=== PATIENT | female | born 1985 | race African-American/Black ===

== ENCOUNTER 2017-01-15 08:11 | Emergency (ER) | payer BC ==
[2017-01-15 08:18] VITALS: BP 150/97
--- NOTE | 2017-01-15 09:26 | ER Document Report ---
ED General - General Chief Complaint: Cold Symptoms Stated Complaint: COUGH Time Seen by Provider: 01/15/17 08:26 Mode of Arrival: Ambulatory Information source: Patient Notes: 31-year-old female presents with complaints of cough congestion sore throat body aches of approximately 3-4 day duration. Patient denies any fevers or chills denies any drainage from the nose TRAVEL OUTSIDE OF THE [place] IN LAST 30 DAYS: No - HPI Onset: Last week Onset/Duration: Persistent Quality of pain: Achy Severity: Mild Pain Level: 1 Associated symptoms: Body/muscle aches, Nonproductive cough Exacerbated by: Denies Relieved by: Denies Similar symptoms previously: No Recently seen / treated by doctor: No - Related Data Allergies/Adverse Reactions: No Known Allergies Allergy (Verified 01/15/17 08:27) Past Medical History - Social History Smoking Status: Current Every Day Smoker Cigarette use (# per day): Yes Chew tobacco use (# tins/day): No Smoking Education Provided: No Frequency of alcohol use: Social Drug Abuse: None Family History: Reviewed & Not Pertinent Patient has suicidal ideation: No Patient has homicidal ideation: No - Past Medical History Cardiac Medical History: Reports: Hx Hypertension Renal/ Medical History: Denies: Hx Peritoneal Dialysis Surgical Hx: Negative - Immunizations Hx Diphtheria, Pertussis, Tetanus Vaccination: Yes Review of Systems - Review of Systems Notes: REVIEW OF SYSTEMS: CONSTITUTIONAL : Denies fever, chills, or sweats. Denies recent illness. EENT: Admits to sore throat CARDIOVASCULAR: Denies chest pain. Denies palpitations or racing or irregular heart beat. Denies ankle edema. RESPIRATORY: Denies cough, cold, or chest congestion. Denies shortness of breath, difficulty breathing, or wheezing. GASTROINTESTINAL: Denies abdominal pain or distention. Denies nausea, vomiting , or diarrhea. Denies blood in vomitus, stools, or per rectum. Denies black, tarry stools. Denies constipation. GENITOURINARY: Denies difficulty urinating, painful urination, burning, frequency, blood in urine, or discharge. FEMALE GENITOURINARY: Denies vaginal bleeding, heavy or abnormal periods, irregular periods. Denies vaginal discharge or odor. MUSCULOSKELETAL: Admits to body aches SKIN: Denies rash, lesions or sores. HEMATOLOGIC : Denies easy bruising or bleeding. LYMPHATIC: Denies swollen, enlarged glands. NEUROLOGICAL: Denies confusion or altered mental status. Denies passing out or loss of consciousness. Denies dizziness or lightheadedness. Denies headache. Denies weakness or paralysis or loss of use of either side. Denies problems with gait or speech. Denies sensory loss, numbness, or tingling. Denies seizures. PSYCHIATRIC: Denies anxiety or stress. Denies depression, suicidal ideation, or homicidal ideation. ALL OTHER SYSTEMS REVIEWED AND NEGATIVE. PHYSICAL EXAMINATION: GENERAL: Well-appearing, well-nourished and in no acute distress. HEAD: Atraumatic, normocephalic. EYES: Pupils equal round and reactive to light, extraocular movements intact, conjunctiva are normal. ENT: Nares patent, oropharynx clear without exudates. Moist mucous membranes. NECK: Normal range of motion, supple without lymphadenopathy LUNGS: Breath sounds clear to auscultation bilaterally and equal. No wheezes rales or rhonchi. HEART: Regular rate and rhythm without murmurs ABDOMEN: Soft, nontender, nondistended abdomen. No guarding, no rebound. No masses appreciated. Female : deferred Musculoskeletal: Normal range of motion, no pitting or edema. No cyanosis. NEUROLOGICAL: Cranial nerves grossly intact. Normal speech, normal gait. Normal sensory, motor exams PSYCH: Normal mood, normal affect. SKIN: Warm, Dry, normal turgor, no rashes or lesions noted. Dictation was performed using [employer] voice recognition software Physical Exam - Vital signs Vitals: Temp Pulse Resp BP Pulse Ox 98.5 F 94 16 150/97 H 96 01/15/17 08:14 01/15/17 08:14 01/15/17 08:14 01/15/17 08:14 01/15/17 08:14 Course - Re-evaluation Re-evalutation: 01/15/17 11:48 Physical examination noted no significant abnormality strep flu were negative. Patient overall looks quite well. I will discharge her home as a viral syndrome with close return precautions After performing a Medical Screening Examination, I estimate there is LOW risk for ACUTE CORONARY SYNDROME, RESPIRATORY FAILURE, SEPSIS OR MENINGITIS, thus I consider the discharge disposition reasonable. I have reevaluated this patient multiple times and no significant life threatening changes are noted. The patient and I have discussed the diagnosis and risks, and we agree with discharging home with close follow-up. We also discussed returning to the Emergency Department immediately if new or worsening symptoms occur. We have discussed the symptoms which are most concerning (e.g., changing or worsening pain, trouble swallowing or breathing, neck stiffness, fever) that necessitate immediate return. - Vital Signs Vital signs: Temp Pulse Resp BP Pulse Ox 98.5 F 94 16 150/97 H 96 01/15/17 08:14 01/15/17 08:14 01/15/17 08:14 01/15/17 08:14 01/15/17 08:14 Discharge - Discharge Clinical Impression: Viral URI with cough Condition: Stable Disposition: HOME, SELF-CARE Instructions: Viral Syndrome ([facility]) Prescriptions: Hydrocodone Bit/Homatropine [Hycodan 5-1.5 mg Tablet] 1 tab PO Q4HP PRN #24 tablet PRN Reason: Referrals: JACOB NUNN PA-C [Primary Care Provider] - Follow up tomorrow
== END 2017-01-15 09:45 | disposition home or self-care (01) ==
LOC: ER 08:11
DX: J06.9 Acute upper respiratory infection, unspecified (principal); R05 Cough; R09.81 Nasal congestion; J02.9 Acute pharyngitis, unspecified; M79.1 Myalgia; F17.210 Nicotine dependence, cigarettes, uncomplicated
CPT/HCPCS: 87070; 87077; 87804; 87880; 99283

== ENCOUNTER 2017-01-25 10:43 | Emergency (ER) | payer BC ==
[~2017-01-25 10:43] MED LIST: DEXAMETHASONE SOD PHOSPHATE INJ 4 MG/1 ML VIAL ONE; GLYCOPYRROLATE INJ 0.4 MG/2 ML VIAL ONE; KETOROLAC TROMETHAMINE 60 MG/2 ML SDV ONE; LIDOCAINE 2% INJ-PF (20 MG/ML) 10 ML AMPUL ONE; METOCLOPRAMIDE HCL INJ/PF 10 MG/2 ML SDV ONE; ONDANSETRON HCL INJ/PF 4 MG/2 ML SDV ONE
[2017-01-25] MEDS ORDERED: NORMAL SALINE 1000 ML 1,000 ML IV PRN (11:09)
--- NOTE | 2017-01-25 11:15 | ER Document Report ---
ED Breast Problem - General Chief Complaint: Breast Problem Stated Complaint: BREAST PAIN Time Seen by Provider: 01/25/17 10:52 Mode of Arrival: Ambulatory Information source: Patient Notes: 31-year-old female presents to ED for complaint of left breast pain 2 weeks. She has history of hydranitis it started in her left axilla and now is across to her left breast and she states she has been in other areas also. Today she is here with severe pain to the left breast with 2 large areas on the left breast that are firm and very painful. TRAVEL OUTSIDE OF THE [place] IN LAST 30 DAYS: No - HPI Patient complains to provider of: Drainage, Lump, Redness, Swelling, Tenderness Onset: Other - 2 weeks Onset/Duration: Persistent, Worse Quality of pain: Achy, Pressure, Sharp Severity: Severe Pain Level: 5 Drainage amount: Scant Discharge description: Serous Associated Symptoms: Other - Pain Similar symptoms previously: Yes Recently seen / treated by doctor: No - Related Data Allergies/Adverse Reactions: No Known Allergies Allergy (Verified 01/25/17 10:47) Home Medications: Current Home Medications No Home Medications 01/25/17 [History] Past Medical History - General Information source: Patient - Social History Smoking Status: Current Every Day Smoker Cigarette use (# per day): Yes - One half pack per day Chew tobacco use (# tins/day): No Frequency of alcohol use: Occasional Drug Abuse: None Lives with: Family Family History: Arthritis, DM, Hyperlipidemia, Hypertension, Malignancy. denies : CAD, COPD, CVA, Thyroid Disfunction Patient has suicidal ideation: No Patient has homicidal ideation: No - Past Medical History Cardiac Medical History: Reports: Hx Hypertension Pulmonary Medical History: Reports: None EENT Medical History: Reports: None Neurological Medical History: Reports: None Endocrine Medical History: Reports: None Renal/ Medical History: Reports: None. Denies: Hx Peritoneal Dialysis Malignancy Medical History: Reports: None GI Medical History: Reports: None Musculoskeltal Medical History: Reports None Skin Medical History: Reports Other - Hydranitis Psychiatric Medical History: Reports: Hx Depression Traumatic Medical History: Reports: None Infectious Medical History: Reports: None Surgical Hx: Negative Past Surgical History: Reports: None - Immunizations Hx Diphtheria, Pertussis, Tetanus Vaccination: Yes Review of Systems - Review of Systems Constitutional: No symptoms reported EENT: No symptoms reported Cardiovascular: No symptoms reported Respiratory: No symptoms reported Gastrointestinal: No symptoms reported Genitourinary: No symptoms reported Female Genitourinary: No symptoms reported Musculoskeletal: No symptoms reported Skin: Lumps - Very painful to left breast and left chest wall Hematologic/Lymphatic: No symptoms reported Neurological/Psychological: No symptoms reported -: Yes All other systems reviewed and negative Physical Exam - Vital signs Vitals: Temp Pulse Resp BP Pulse Ox 99.0 F 100 18 149/103 H 94 01/25/17 10:48 01/25/17 10:48 01/25/17 10:48 01/25/17 10:48 01/25/17 10:48 Interpretation: Normal - General General appearance: Appears well, Alert - HEENT Head: Normocephalic, Atraumatic Eyes: Normal Pupils: PERRL - Respiratory Respiratory status: No respiratory distress Chest status: Nontender Breath sounds: Normal Chest palpation: Normal - Cardiovascular Rhythm: Regular Heart sounds: Normal auscultation Murmur: No - Abdominal Inspection: Normal Distension: No distension Bowel sounds: Normal Tenderness: Nontender Organomegaly: No organomegaly - Back Back: Normal, Nontender - Extremities General upper extremity: Normal inspection, Nontender, Normal color, Normal ROM , Normal temperature General lower extremity: Normal inspection, Nontender, Normal color, Normal ROM , Normal temperature, Normal weight bearing. No: Carmen's sign - Neurological Neuro grossly intact: Yes Cognition: Normal Orientation: AAOx4 Sushma Coma Scale Eye Opening: Spontaneous [place] Coma Scale Verbal: Oriented Sushma Coma Scale Motor: Obeys Commands Sushma Coma Scale Total: 15 Speech: Normal Motor strength normal: LUE, RUE, LLE, RLE Sensory: Normal - Psychological Associated symptoms: Normal affect, Normal mood - Skin Skin Temperature: Warm Skin Moisture: Dry Skin Color: Normal Skin irregularity: Abscess Location of irregularity: Other - Left breast and chest wall Irregularity with: Swelling, Tenderness, Warmth, Thickening, Inflammation, Weeping Course - Re-evaluation Re-evalutation: 01/25/17 12:[address] Phillips and then Dr. Reynoso patient will be taken to surgery to I&D the abscess to her breast and chest wall. CBC chemistry tests blood cultures clindamycin and urine ordered. Dr. Reynoso has been and seen the patient and will be taken her to surgery shortly. - Vital Signs Vital signs: Temp Pulse Resp BP Pulse Ox 99.0 F 100 18 149/103 H 94 01/25/17 10:48 01/25/17 10:48 01/25/17 10:48 01/25/17 10:48 01/25/17 10:48 - Laboratory Result Diagrams: 01/25/17 11:40 01/25/17 11:40 Discharge - Discharge Clinical Impression: Left breast abscess Condition: Good Disposition: ADMITTED INPATIENT Admitting Provider: Surgicalist - [place] [facility] Admitted: Surgical Floor
[2017-01-25] MEDS ORDERED: CLINDAMYCIN 600 MG/D5W RTU 600 MG/50 ML RTUPB IV ONE ×2 (11:40→14:45)
[2017-01-25 11:57] LABS: ABSOLUTE EOSINOPHILS # (AUTO) 0.1 10^3/uL (0.0-0.6); ABSOLUTE LYMPHOCYTES (AUTO) 1.3 10^3/uL (0.5-4.7); ABSOLUTE MONOCYTES (AUTO) 0.5 10^3/uL (0.1-1.4); ABSOLUTE NEUT (AUTO) 8.2 10^3/uL (1.7-8.2); BASOPHILS % (AUTO) 0.3 % (0-2); HEMATOCRIT 30.4 % (36.0-47.0); HEMOGLOBIN 10.4 g/dL (12.0-15.5); HGB HCT DIFFERENCE 0.8; LYMPHOCYTES % (AUTO) 12.4 % (13-45); MEAN CORPUSCULAR HEMOGLOBIN 28.8 pg (27.0-33.4); MEAN CORPUSCULAR HGB CONC 34.3 g/dL (32.0-36.0); MEAN CORPUSCULAR VOLUME 84 fl (80-97); MONOCYTES % (AUTO) 5.1 % (3-13); RED BLOOD COUNT 3.61 10^6/uL (3.72-5.28); RED CELL DISTRIBUTION WIDTH 13.9 % (11.5-14.0); SEGMENTED NEUTROPHILS % (AUTO) 81.2 % (42-78); WHITE BLOOD COUNT 10.1 10^3/uL (4.0-10.5)
[2017-01-25 12:17] LABS: ALANINE AMINOTRANSFERASE 20 U/L (9-52); ALBUMIN 3.2 g/dL (3.5-5.0); ALKALINE PHOSPHATASE 82 U/L (38-126); ANION GAP 6 (5-19); ASPARTATE AMINO TRANSFERASE 10 U/L (14-36); BILIRUBIN,DIRECT 0.3 mg/dL (0.0-0.4); BILIRUBIN,TOTAL 0.3 mg/dL (0.2-1.3); BLOOD UREA NITROGEN 10 mg/dL (7-20); CALCIUM 8.2 mg/dL (8.4-10.2); CARBON DIOXIDE 25 mmol/L (22-30); CHLORIDE 111 mmol/L (98-107); CREATININE RESULT 0.73 mg/dL (0.52-1.25); GLUCOSE 84 mg/dL (75-110); POTASSIUM 3.6 mmol/L (3.6-5.0); SODIUM 141.8 mmol/L (137-145); TOTAL PROTEIN 6.8 g/dL (6.3-8.2)
--- NOTE | 2017-01-25 12:27 | HISTORY AND PHYSICAL E ---
History and Physical NAME: RUBI MONTERROSO : 1985 AGE: 31Y ADMITTED: 01/25/2017 ROOM: ED36 CHIEF COMPLAINT: Left below the breast pains for the past 2 weeks, worse in the past 5 days. HISTORY OF PRESENT ILLNESS: This is a 31-year-old female with known history of hidradenitis suppurativa of both axilla who noted pains along the left lower part of the breast 2 weeks ago but getting worse since about 5 days ago. She said she sometimes would have this hidradenitis infection but it usually spontaneously drains and then the infection will be improved. This time this abscess continued to worsen and eventually brought her to the emergency room. PAST HISTORY: History of hypertension. She used to take antihypertensive medications but since her blood pressure is controlled despite stopping the medications she is not really taking any medications at this time. History of multiple I and D's of both axilla due to hidradenitis. ALLERGIES: No known. SOCIAL HISTORY: Smokes half a pack a day. Drinks rarely and denies recreational drug use. FAMILY HISTORY: Positive for diabetes and her father has it. PHYSICAL EXAMINATION: GENERAL: Well-developed, slightly obese 31-year-old -[place] female, alert and oriented, complaining of left lower breast pain. NECK: Supple. No thyromegaly. LUNGS: Clear. HEART: Regular sinus rhythm. ABDOMEN: Soft, nontender. EXTREMITIES: No edema. Evidence of previous I and D's in both axilla due to hidradenitis but no obvious hidradenitis infection at this time. CHEST: There is an inflamed, very tender area along the left lower breast and actually extending to the breast itself. This is very tender. IMPRESSION: Abscess of the left breast area. PLAN: Start IV antibiotics, hydration, and prep for I and D in the OR today of left anterior chest wall and left breast abscess. In the meantime, start on clindamycin medication until cultures come back. DICTATING PHYSICIAN: HELENA MARTÍNEZ M.D. [id number] PHY#: [id number] ID: [id number] JOB#: [id number] ACCT: [id number] cc:HELENA MARTÍNEZ M.D. >
[2017-01-25] MEDS ORDERED: LIDOCAINE 1% INJ-PF (10 MG/ML) 30 ML SDV ONE (12:39)
[2017-01-25 12:54] LABS: APPEARANCE,URINE CLEAR; BILIRUBIN,URINE NEGATIVE (NEGATIVE); GLUCOSE, URINE NEGATIVE (NEGATIVE); KETONES,URINE NEGATIVE (NEGATIVE); LEUKOCYTE ESTERASE,URINE TRACE (NEGATIVE); NITRITE,URINE NEGATIVE (NEGATIVE); PROTEIN,URINE NEGATIVE (NEGATIVE); URINE SPECIFIC GRAVITY 1.008; UROBILINOGEN,URINE NEGATIVE mg/dL (<2.0)
[2017-01-25] MEDS ORDERED: MIDAZOLAM 2 MG/2 ML INJ ONE (13:01)
[2017-01-25] MEDS ORDERED: ACETAMINOPHEN 100 ML IV ONE (13:01)
[2017-01-25] MEDS ORDERED: FENTANYL CITRATE INJ/PF 100 MCG/2 ML AMPUL ONE (13:01)
[2017-01-25] MEDS ORDERED: FENTANYL CITRATE INJ/PF 250 MCG/5 ML AMPULE ONE (13:01)
[2017-01-25] MEDS ORDERED: PROPOFOL INJ 200 MG/20 ML VIAL IV ONE (13:01)
[2017-01-25] MEDS ORDERED: DEXMEDETOMIDINE INJ 80 MCG/20 ML VIAL IV ONE (13:29)
[2017-01-25] MEDS ORDERED: KETAMINE HCL INJ 500 MG/10 ML VIAL ONE (13:29)
[2017-01-25] MEDS ORDERED: OXYCODONE-ACETAMINOPHEN 5-325 MG TABLET PO PRN (14:45)
--- NOTE | 2017-01-25 15:17 | OPERATIVE REPORT E ---
Operative Report NAME: RUBI MONTERROSO : 1985 AGE: 31Y DATE OF SURGERY: 01/25/2017 ROOM: ED36 PREOPERATIVE DIAGNOSIS: Left anterior chest wall abscess just below the breast. POSTOPERATIVE DIAGNOSIS: Left anterior chest wall abscess just below the breast. PROCEDURE: Incision and drainage of large abscess below the breast, measuring roughly about 8 cm wide x 5 cm long x about 3 cm deep down to the fascia and muscle. SURGEON: HELENA MARTÍNEZ M.D. ANESTHESIA: Local, MAC. INDICATION: This is a 31-year-old female who has been having pains along the left below breast area for the past 2 weeks, worse in the past 5 days. There is an obvious area of abscess just below the breast and maybe including the lower part of the breast with inflammation. DESCRIPTION OF PROCEDURE: The patient was placed in a supine position and given IV sedation. During the sedation, the patient had some difficulty breathing. Because of this, the area was immediately prepped and draped in the usual sterile fashion. An appropriate timeout was called. Local anesthesia infiltrated over the mid part of the abscess and the incision made. Finger dissection of the area was done. The incision was enlarged laterally and medially to about 5 cm long. The cavity was then irrigated with saline solution. No other evidence of undermining noted. The area was subsequently packed with almost a *------* of half-inch Iodoform gauze. Sterile dressings were placed over the operative site. Needle, instrument, and sponge count were all correct. Estimated blood loss about 20 mL. The patient was brought back to the PACU in satisfactory condition. DICTATING PHYSICIAN: HELENA MARTÍNEZ M.D. [id number] PHY#: [id number] ID: [id number] JOB#: [id number] ACCT: [id number] cc:HELENA MARTÍNEZ M.D. >
[2017-01-25 16:39] VITALS: BP 129/83
--- NOTE | 2017-01-27 23:02 | DISCHARGE SUMMARY E ---
Discharge Summary NAME: RUBI MONTERROSO : 1985 AGE: 31Y ADMITTED: 01/25/2017 DISCHARGED: 01/25/2017 FINAL DIAGNOSIS: Abscess of the anterior chest wall just below the breast measuring 8 cm wide by 5 cm long by about 3 cm deep down to the fascia. PROCEDURE DONE: On 01/25/17, incision and drainage of large abscess on the anterior chest wall below the left breast measuring about 8 cm wide by 5 cm long by 3 cm deep down to the fascia and the muscle. SUMMARY: This is a 31-year-old female with pain at the left anterior chest below the left breast for the past 2 weeks, worse in the past 2 days. Patient had obvious abscess of this site. Patient was taken to the operating room on the same day on 01/25/17 where incision and drainage and irrigation of the abscess cavity was then done under sedation with local anesthesia. The area was subsequently packed with iodoform gauze. Patient subsequently discharged postoperatively. Patient is scheduled to be followed up in the Surgical Clinic on 01/27/17 for removal of the packing. Also, patient given prescription for clindamycin and Percocet. Patient can have a regular diet and avoid lifting more than 15 pounds until seen in the clinic. DICTATING PHYSICIAN: HELENA MARTÍNEZ M.D. [id number] TAHIRAY#: [id number] ID: [id number] JOB#: [id number] ACCT: [id number] cc:Hemanth NEVAREZ PA >
== END 2017-01-25 16:25 | disposition home or self-care (01) ==
LOC: ER 10:43 → UNDOADMIN 11:33 → EH 11:33 → UNDODISIN 16:25 → ER 16:25
PROC: 0H9UXZZ (ICD-10-PCS; principal; 2017-01-25 12:45)
DX: N61.1 Abscess of the breast and nipple (principal); L02.213 Cutaneous abscess of chest wall; F17.210 Nicotine dependence, cigarettes, uncomplicated; I10 Essential (primary) hypertension
CPT/HCPCS: 99284; 36415; 87040; 87070; 87205; 84703; 85025; 87075; 87077; 80053; 81001; 87186; 10061; J2250; J1100; J1885; J3010; J3490 ×4; J2765; J2405; J7030; J2704; J0131; 400

== ENCOUNTER → 2017-09-14 | Outpatient (CLI) | payer OTHER ==
[2017-09-14 09:18] LABS: ABSOLUTE EOSINOPHILS # (AUTO) 0.1 10^3/uL (0.0-0.6); ABSOLUTE LYMPHOCYTES (AUTO) 1.6 10^3/uL (0.5-4.7); ABSOLUTE MONOCYTES (AUTO) 0.3 10^3/uL (0.1-1.4); ABSOLUTE NEUT (AUTO) 3.6 10^3/uL (1.7-8.2); ABSOLUTE RETICS # 0.064 10^6/uL (0.028-0.122); BASOPHILS % (AUTO) 0.3 % (0-2); EOSINOPHILS % (AUTO) 1.6 % (0-6); HEMATOCRIT 35.3 % (36.0-47.0); HEMOGLOBIN 11.9 g/dL (12.0-15.5); LYMPHOCYTES % (AUTO) 28.1 % (13-45); MEAN CORPUSCULAR HEMOGLOBIN 28.9 pg (27.0-33.4); MEAN CORPUSCULAR HGB CONC 33.8 g/dL (32.0-36.0); MEAN CORPUSCULAR VOLUME 86 fl (80-97); MONOCYTES % (AUTO) 5.4 % (3-13); PLATELET COUNT 292 10^3/uL (150-450); RED BLOOD COUNT 4.13 10^6/uL (3.72-5.28); RED CELL DISTRIBUTION WIDTH 14.1 % (11.5-14.0); RETICULOCYTE COUNT (AUTO) 1.55 % (0.66-2.85); SEGMENTED NEUTROPHILS % (AUTO) 64.6 % (42-78); TOTAL CELLS COUNTED % (AUTO) 100 %; WHITE BLOOD COUNT 5.6 10^3/uL (4.0-10.5)
[2017-09-14 09:45] LABS: ALANINE AMINOTRANSFERASE 18 U/L (9-52); ALBUMIN 3.7 g/dL (3.5-5.0); ALKALINE PHOSPHATASE 84 U/L (38-126); ANION GAP 9 (5-19); ASPARTATE AMINO TRANSFERASE 17 U/L (14-36); BILIRUBIN,DIRECT 0.1 mg/dL (0.0-0.4); BILIRUBIN,TOTAL 0.1 mg/dL (0.2-1.3); BLOOD UREA NITROGEN 15 mg/dL (7-20); CALCIUM 9.2 mg/dL (8.4-10.2); CARBON DIOXIDE 26 mmol/L (22-30); CHLORIDE 108 mmol/L (98-107); CHOLESTEROL 133.57 mg/dL (0-200); GLUCOSE 105 mg/dL (75-110); IRON 54.8 ug/dL (37-170); POTASSIUM 4.3 mmol/L (3.6-5.0); SODIUM 143.1 mmol/L (137-145); TOTAL PROTEIN 7.5 g/dL (6.3-8.2); TRIGLYCERIDES 214 mg/dL (<150)
[2017-09-14 10:47] LABS: FOLATE 4.05 ng/mL (>2.76)
[2017-09-14 10:49] LABS: DIRECT LDL < 30 mg/dL (<100); VLDL CHOLESTEROL 42.8 mg/dL (10-31)
== END ==
LOC: CCC 08:09
DX: I10 Essential (primary) hypertension (principal); D50.8 Other iron deficiency anemias
CPT/HCPCS: 36415; 80053; 80061; 82607; 82728; 82746; 83036; 83540; 84443; 85025; 85045

== ENCOUNTER 2017-12-06 14:11 | Emergency (ER) | payer OTHER ==
--- NOTE | 2017-12-06 15:33 | ER Document Report ---
ED General - General Chief Complaint: Sinus Congestion Stated Complaint: SORE THROAT Time Seen by Provider: 12/06/17 15:20 Notes: Patient presents with concerns of cough and congestion. Patient states 2 weeks ago she had upper respiratory congestion. She states that that improved in a week and a half ago she began to develop a cough that is thick white mucus production sometimes yellow. No fevers or chills. Patient denies being diabetic no known medical problems. She denies any chest pain. TRAVEL OUTSIDE OF THE [place] IN LAST 30 DAYS: No - Related Data Allergies/Adverse Reactions: No Known Allergies Allergy (Verified 01/25/17 10:47) Past Medical History - Social History Smoking Status: Current Every Day Smoker Family History: Arthritis, DM, Hyperlipidemia, Hypertension, Malignancy. denies : CAD, COPD, CVA, Thyroid Disfunction Patient has suicidal ideation: No Patient has homicidal ideation: No - Past Medical History Cardiac Medical History: Reports: Hx Hypertension Renal/ Medical History: Denies: Hx Peritoneal Dialysis Psychiatric Medical History: Reports: Hx Depression - Immunizations Hx Diphtheria, Pertussis, Tetanus Vaccination: Yes Review of Systems - Review of Systems Constitutional: No symptoms reported EENT: No symptoms reported Cardiovascular: No symptoms reported Respiratory: Cough, Sputum Gastrointestinal: No symptoms reported Genitourinary: No symptoms reported Female Genitourinary: No symptoms reported Musculoskeletal: No symptoms reported Skin: No symptoms reported Hematologic/Lymphatic: No symptoms reported Neurological/Psychological: No symptoms reported Physical Exam - Vital signs Vitals: Temp Pulse Resp BP Pulse Ox 98.7 F 103 H 18 148/106 H 99 12/06/17 14:36 12/06/17 14:36 12/06/17 14:36 12/06/17 14:36 12/06/17 14:36 - General General appearance: Appears well, Alert - HEENT Head: Normocephalic, Atraumatic Extraocular movements intact: Yes Pupils: PERRL Pharynx: Normal Neck: Normal - Respiratory Respiratory status: No respiratory distress Chest status: Nontender Breath sounds: Normal. No: Rhonchi, Stridor, Wheezing - Cardiovascular Rhythm: Regular Heart sounds: Normal auscultation Murmur: No - Abdominal Inspection: Normal Bowel sounds: Normal Tenderness: Nontender - Back Back: Normal - Neurological Orientation: AAOx4 Course - Re-evaluation Re-evalutation: 12/06/17 16:22 No acute findings on chest x-ray symptoms consistent with bronchitis discuss smoking cessation will provide albuterol puffer 5 days steroids. Return precautions provided - Vital Signs Vital signs: Temp Pulse Resp BP Pulse Ox 98.7 F 103 H 18 148/106 H 99 12/06/17 14:36 12/06/17 14:36 12/06/17 14:36 12/06/17 14:36 12/06/17 14:36 - Diagnostic Test Radiology reviewed: Image reviewed - NAD Discharge - Discharge Clinical Impression: Bronchitis Condition: Good Disposition: HOME, SELF-CARE Instructions: Bronchitis ([facility]), Stop Smoking ([facility]) Prescriptions: Albuterol Sulfate [Proair HFA Inhalation Aerosol 8.5 gm MDI] 2 puff IH Q4H PRN # 1 mdi PRN Reason: Ondansetron [Zofran Odt 4 mg Tablet] 1 tab PO Q4H PRN #15 tab.rapdis PRN Reason: For Nausea/Vomiting Prednisone [Deltasone 20 mg Tablet] 40 mg PO DAILY 5 Days #10 tablet Referrals: [facility] [NO LOCAL MD] - Follow up as needed
--- NOTE | 2017-12-06 16:03 | RADIOLOGY REPORT (SQ) ---
EXAM DESCRIPTION: CHEST 2 VIEWS COMPLETED DATE/TIME: 12/06/2017 3:56 pm REASON FOR STUDY: cough/congestion COMPARISON: None. EXAM PARAMETERS: NUMBER OF VIEWS: two views TECHNIQUE: Digital Frontal and Lateral radiographic views of the chest acquired. RADIATION DOSE: NA LIMITATIONS: none FINDINGS: LUNGS AND PLEURA: No opacities, masses or pneumothorax. No pleural effusion. MEDIASTINUM AND HILAR STRUCTURES: No masses or contour abnormalities. HEART AND VASCULAR STRUCTURES: Heart normal size. No evidence for failure. BONES: No acute findings. HARDWARE: None in the chest. OTHER: No other significant finding. IMPRESSION: NO ACUTE RADIOGRAPHIC FINDING IN THE CHEST. TECHNICAL DOCUMENTATION: JOB ID: [id number]- All Rights Reserved Reading location - IP/workstation name: [email or web address]
[2017-12-06 17:08] VITALS: BP 132/87
== END 2017-12-06 17:08 | disposition home or self-care (01) ==
LOC: ER 14:11
DX: J40 Bronchitis, not specified as acute or chronic (principal); R05 Cough; R09.81 Nasal congestion; F17.200 Nicotine dependence, unspecified, uncomplicated; I10 Essential (primary) hypertension
CPT/HCPCS: 71046; 99283

== ENCOUNTER → 2018-01-04 | Outpatient (CLI) | payer OTHER ==
[2018-01-04 15:31] LABS: ABSOLUTE EOSINOPHILS # (AUTO) 0.1 10^3/uL (0.0-0.6); ABSOLUTE LYMPHOCYTES (AUTO) 1.7 10^3/uL (0.5-4.7); ABSOLUTE MONOCYTES (AUTO) 0.3 10^3/uL (0.1-1.4); ABSOLUTE NEUT (AUTO) 4.4 10^3/uL (1.7-8.2); BASOPHILS % (AUTO) 0.4 % (0-2); HEMATOCRIT 33.2 % (36.0-47.0); HEMOGLOBIN 11.4 g/dL (12.0-15.5); LYMPHOCYTES % (AUTO) 25.3 % (13-45); MEAN CORPUSCULAR HEMOGLOBIN 29.2 pg (27.0-33.4); MEAN CORPUSCULAR HGB CONC 34.2 g/dL (32.0-36.0); MEAN CORPUSCULAR VOLUME 85 fl (80-97); MONOCYTES % (AUTO) 5.2 % (3-13); PLATELET COUNT 359 10^3/uL (150-450); RED CELL DISTRIBUTION WIDTH 14.3 % (11.5-14.0); SEGMENTED NEUTROPHILS % (AUTO) 67.1 % (42-78); TOTAL CELLS COUNTED % (AUTO) 100 %; WHITE BLOOD COUNT 6.6 10^3/uL (4.0-10.5)
[2018-01-04 15:32] LABS: ALANINE AMINOTRANSFERASE 27 U/L (9-52); ALBUMIN 3.5 g/dL (3.5-5.0); ALKALINE PHOSPHATASE 82 U/L (38-126); ASPARTATE AMINO TRANSFERASE 20 U/L (14-36); BILIRUBIN,DIRECT 0.2 mg/dL (0.0-0.4); BILIRUBIN,TOTAL 0.2 mg/dL (0.2-1.3); TOTAL PROTEIN 7.5 g/dL (6.3-8.2)
[2018-01-05 06:39] LABS: HEPATITIS A AB IGM Negative (Negative); HEPATITIS B CORE AB IGM Negative (Negative); HEPATITS B SURFACE ANTIGEN Negative (Negative)
[2018-01-05 08:11] LABS: HEPATITIS C VIRUS ANTIBODY <0.1 s/co ratio (0.0-0.9)
== END ==
LOC: LAB 14:49
PROVIDERS: ATTEND Physician Assistant
DX: L73.2 Hidradenitis suppurativa (principal); Z79.899 Other long term (current) drug therapy
CPT/HCPCS: 36415; 80074; 80076; 85025; 86480

== ENCOUNTER 2018-05-10 08:00 | Emergency (ER) | payer BC, OTHER ==
[2018-05-10 08:08] VITALS: BP 154/90
== END 2018-05-10 10:05 | disposition left against medical advice (07) ==
LOC: ER 08:00
DX: Z53.21 Procedure and treatment not carried out due to patient leaving prior to being seen by health care provider (principal)

== ENCOUNTER 2018-08-07 09:56 | Emergency (ER) | payer BC ==
--- NOTE | 2018-08-07 10:24 | ER Document Report ---
ED Medical Screen (RME) - General Chief Complaint: Facial Droop Stated Complaint: FACIAL SWELLING Time Seen by Provider: 08/07/18 10:16 Primary Care Provider: SUSHANT MITCHELL MD [Primary Care Provider] - Follow up as needed Mode of Arrival: Ambulatory Information source: Patient Notes: Patient presents emergency department sent by her primary care provider for pos sible stroke symptoms. Patient reports on Monday her right side of her face felt swollen. She thought it was her sinuses. She reports that she contacted her doctor today because her mouth was slightly twisted and slurred speech. Provider sent her here to be evaluated for possible stroke. Discussed Reis's palsy. Reports father has a history of stroke. Denies all other symptoms such as fever vomiting diarrhea. Right side of her mouth is droopy speech is slightly slurred. 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 I have greeted and performed a rapid initial assessment of this patient. A comprehensive ED assessment and evaluation of the patient, analysis of test results and completion of the medical decision making process will be conducted by additional ED providers. TRAVEL OUTSIDE OF THE [place] IN LAST 30 DAYS: No - Related Data Allergies/Adverse Reactions: No Known Allergies Allergy (Verified 08/07/18 09:57) Past Medical History - Social History Chew tobacco use (# tins/day): No Frequency of alcohol use: None Drug Abuse: None - Past Medical History Cardiac Medical History: Reports: Hx Hypertension Renal/ Medical History: Denies: Hx Peritoneal Dialysis Psychiatric Medical History: Reports: Hx Depression - Immunizations Hx Diphtheria, Pertussis, Tetanus Vaccination: Yes Physical Exam - Vital signs Vitals: Temp Pulse Resp BP Pulse Ox 98.4 F 102 H 18 145/97 H 95 08/07/18 10:02 08/07/18 10:02 08/07/18 10:02 08/07/18 10:02 08/07/18 10:02 Course - Vital Signs Vital signs: Temp Pulse Resp BP Pulse Ox 98.4 F 102 H 18 145/97 H 95 08/07/18 10:02 08/07/18 10:02 08/07/18 10:02 08/07/18 10:02 08/07/18 10:02 Doctor's Discharge - Discharge Referrals: SUSHANT MITCHELL MD [Primary Care Provider] - Follow up as needed
--- NOTE | 2018-08-07 10:45 | RADIOLOGY REPORT (SQ) ---
EXAM DESCRIPTION: CT HEAD WITHOUT COMPLETED DATE/TIME: 08/07/2018 10:32 am REASON FOR STUDY: sent by pcp for possible stroke symptoms COMPARISON: None. TECHNIQUE: Axial images acquired through the brain without intravenous contrast. Images reviewed wi th bone, brain and subdural windows. Additional sagittal and coronal reconstructions were generated. Images stored on PACS. All CT scanners at this facility use dose modulation, iterative reconstruction, and/or weight based d osing when appropriate to reduce radiation dose to as low as reasonably achievable (ALARA). [facility]: Dose Right [facility]: CareDose [facility]: Dose Right [facility]: Teradose 4D [facility]: Smart IPDIA RADIATION DOSE: CT Rad equipment meets quality standard of care and radiation dose reduction techniq ues were employed. CTDIvol: 53.2 mGy. DLP: 1097 mGy-cm. mGy. LIMITATIONS: None. FINDINGS: VENTRICLES: Normal size and contour. CEREBRUM: No masses. No hemorrhage. No midline shift. No evidence for acute infarction. Normal gra y/white matter differentiation. No areas of low density in the white matter. CEREBELLUM: No masses. No hemorrhage. No alteration of density. No evidence for acute infarction. EXTRAAXIAL SPACES: No fluid collections. No masses. ORBITS AND GLOBE: No intra- or extraconal masses. Normal contour of globe without masses. CALVARIUM: No fracture. PARANASAL SINUSES: No fluid levels. SOFT TISSUES: No mass or hematoma. OTHER: No other significant finding. IMPRESSION: NORMAL BRAIN CT WITHOUT CONTRAST. EVIDENCE OF ACUTE STROKE: NO. COMMENT: Quality ID # [id number]: Final reports with documentation of one or more dose reduction techniques (e.g., Automated exposure control, adjustment of the mA and/or kV according to patient size, use of iterative reconstruction technique) TECHNICAL DOCUMENTATION: JOB ID: [id number] [employer]- All Rights Reserved Reading location - IP/workstation name: [email or web address]
[2018-08-07 13:15] VITALS: BP 148/71
--- NOTE | 2018-08-07 13:51 | RADIOLOGY REPORT (SQ) ---
EXAM DESCRIPTION: MRI HEAD WITHOUT COMPLETED DATE/TIME: 08/07/2018 1:18 pm REASON FOR STUDY: R mouth droop, slurred speech COMPARISON: None. TECHNIQUE: Multiplanar imaging includes non-contrasted T1, T2, FLAIR, and diffusion with ADC map seq uences. Images stored on PACS. LIMITATIONS: None. FINDINGS: ANATOMY: No anomalies. Normal vascular flow voids. Pituitary fossa normal. CSF SPACES: Normal in size and contour. No hemorrhage. CEREBRUM: Sulci and gyri normal in size and contour. Normal white matter signal on FLAIR imaging. No evidence of hemorrhage, mass, or extraaxial fluid collection. POSTERIOR FOSSA: No signal alteration. No hemorrhage. No edema, masses or mass effect. Internal rocío tory canals, cerebello-pontine angles, mastoids normal. DIFFUSION IMAGING: Negative for acute or sub-acute infarction. ORBITS: No masses. Globes normal. PARANASAL SINUSES: No fluid levels. Mucosa normal. OTHER: No other significant finding. IMPRESSION: No acute noncontrast MR abnormality of the brain. No evidence of acute diffusion restri cting infarction. EVIDENCE OF ACUTE STROKE: NO. TECHNICAL DOCUMENTATION: JOB ID: [id number] [email or web address]- All Rights Reserved Reading location - IP/workstation name: [email or web address]
--- NOTE | 2018-08-07 14:06 | ER Document Report ---
ED General - General Chief Complaint: Facial Droop Stated Complaint: FACIAL SWELLING Time Seen by Provider: 08/07/18 10:16 Primary Care Provider: SUSHANT MITCHELL MD [Primary Care Provider] - Follow up as needed Mode of Arrival: Ambulatory TRAVEL OUTSIDE OF THE [place] IN LAST 30 DAYS: No - HPI Notes: Patient presents to the emergency department for evaluation. She was sent in by her primary care physician who noted a droop in the right corner of her mouth. She states she also thought her speech to be slurred. The patient states she had an episode of this a couple of weeks ago. She states her face felt swollen to her. At that point she was diagnosed with sinusitis. She states this started again, this episode, 4 days ago. She denies any pain associated with this. She does have pain associated with her hidradenitis. No fevers or chills. No visual changes. No hearing loss. - Related Data Allergies/Adverse Reactions: No Known Allergies Allergy (Verified 08/07/18 09:57) Past Medical History - General Information source: Patient - Social History Smoking Status: Never Smoker Chew tobacco use (# tins/day): No Frequency of alcohol use: None Drug Abuse: None Family History: Arthritis, DM, Hyperlipidemia, Hypertension, Malignancy. denies: CAD, COPD, CVA, Thyroid Disfunction Patient has suicidal ideation: No Patient has homicidal ideation: No - Past Medical History Cardiac Medical History: Reports: Hx Hypertension Renal/ Medical History: Denies: Hx Peritoneal Dialysis Psychiatric Medical History: Reports: Hx Depression Other: Hidradenitis suppurativa - Immunizations Hx Diphtheria, Pertussis, Tetanus Vaccination: Yes Review of Systems - Review of Systems Constitutional: No symptoms reported EENT: See HPI Cardiovascular: No symptoms reported Respiratory: No symptoms reported Gastrointestinal: No symptoms reported Genitourinary: No symptoms reported Musculoskeletal: No symptoms reported Skin: See HPI Neurological/Psychological: See HPI Physical Exam - Vital signs Vitals: Temp Pulse Resp BP Pulse Ox 98.4 F 102 H 18 145/97 H 95 08/07/18 10:02 08/07/18 10:02 08/07/18 10:02 08/07/18 10:02 08/07/18 10:02 - Notes Notes: Vital signs reviewed, please refer to chart. Patient is normocephalic, atraumatic. Pupils equal round, reactive to light. Neck is supple without meningismus. Heart is regular rate and rhythm. Lungs are clear to auscultation bilaterally. Abdomen is soft, nontender, normoactive bowel sounds throughout. Extremities without cyanosis, clubbing, edema. Peripheral pulses are equal. Examination of the face yields a very mild amount of potential swelling of the right cheek. There is no associated erythema or calor noted. Dentition appears to be in good condition. Patient does have very mild weakness of her smile and asymmetry on the right. The remainder of cranial nerves II through XII are grossly intact without focal neurological deficits. The patient has forehead sparing. Strength is plus 5 out of 5 bilateral upper and lower extremities. Reflexes are symmetrical and gait within normal limits. Course - Re-evaluation Re-evalutation: 08/07/18 14:06 Patient presented to the emergency department for evaluation. She attributes this all to swelling. She states she had a similar episode a few weeks ago. Her primary care physician was concerned because her blood pressure was elevated, she wanted to make sure there was not evidence of stroke. I am concerned as this patient does not have any deficits in her forehead. CT scan was negative, but I was concerned enough to order an MRI. MRI failed to reveal any acute abnormalities. Certainly, this could be a very mild case of Reis's palsy. I do not see any benefit to treatment with steroids or antivirals, particularly since the patient has had symptoms for several days already. At this point we will send her back to her primary care physician. She is to return to the emergency department with worsening or new concerning symptoms of any sort. - Vital Signs Vital signs: Temp Pulse Resp BP Pulse Ox 98.4 F 102 H 16 148/71 H 96 08/07/18 10:02 08/07/18 10:19 08/07/18 12:13 08/07/18 12:13 08/07/18 12:13 Discharge - Discharge Clinical Impression: Right facial swelling and weakness Condition: Stable Disposition: HOME, SELF-CARE Additional Instructions: Follow-up with your primary care provider this week. Return to the emergency department with worsening or new concerning symptoms of any sort. Forms: Elevated Blood Pressure Referrals: SUSHANT MITCHELL MD [Primary Care Provider] - Follow up as needed
== END 2018-08-07 17:13 | disposition home or self-care (01) ==
LOC: ER 09:56
DX: R22.0 Localized swelling, mass and lump, head (principal); R53.1 Weakness; I10 Essential (primary) hypertension
CPT/HCPCS: 70450; 70551; 99284

== ENCOUNTER 2019-02-01 15:10 | Emergency (ER) | payer BC ==
--- NOTE | 2019-02-01 16:07 | ER Document Report ---
ED Medical Screen (RME) - General Chief Complaint: Toothache Stated Complaint: TOOTHACHE/SWOLLEN RIGHT SIDE OF FACE Time Seen by Provider: 02/01/19 16:01 Primary Care Provider: SUSHANT MITCHELL MD [Primary Care Provider] - Follow up as needed Mode of Arrival: Ambulatory Information source: Patient Notes: 33-year-old female presented to ED for significant facial swelling from a dental infection. She also has history of blood pressure and hydradenitis.. Patient is alert oriented respirations regular and unlabored speaking in full sentences. She does have facial swelling all the way up to just below her right eye. Patient states she smokes 5 cigarettes a day she states she drinks alcohol 3-4 times a year no street drugs. I have greeted and performed a rapid initial assessment of this patient. A comprehensive ED assessment and evaluation of the patient, analysis of test results and completion of medical decision making process will be conducted by a n additional ED providers. TRAVEL OUTSIDE OF THE [place] IN LAST 30 DAYS: No - Related Data Allergies/Adverse Reactions: No Known Allergies Allergy (Verified 02/01/19 16:01) Past Medical History - Past Medical History Cardiac Medical History: Reports: Hx Hypertension Renal/ Medical History: Denies: Hx Peritoneal Dialysis Psychiatric Medical History: Reports: Hx Depression - Immunizations Hx Diphtheria, Pertussis, Tetanus Vaccination: Yes Physical Exam - Vital signs Vitals: Temp Pulse Resp BP Pulse Ox 99.9 F 99 18 147/88 H 97 02/01/19 15:34 02/01/19 15:34 02/01/19 15:34 02/01/19 15:34 02/01/19 15:34 Course - Vital Signs Vital signs: Temp Pulse Resp BP Pulse Ox 99.9 F 99 18 147/88 H 97 02/01/19 15:34 02/01/19 15:34 02/01/19 15:34 02/01/19 15:34 02/01/19 15:34 Doctor's Discharge - Discharge Referrals: SUSHANT MITCHELL MD [Primary Care Provider] - Follow up as needed
[2019-02-01 17:00] LABS: APPEARANCE,URINE CLEAR; BILIRUBIN,URINE NEGATIVE (NEGATIVE); COLOR,URINE YELLOW; GLUCOSE, URINE NEGATIVE (NEGATIVE); KETONES,URINE NEGATIVE (NEGATIVE); LEUKOCYTE ESTERASE,URINE NEGATIVE (NEGATIVE); NITRITE,URINE NEGATIVE (NEGATIVE); PROTEIN,URINE NEGATIVE (NEGATIVE); URINE SPECIFIC GRAVITY 1.011
[2019-02-01 17:12] LABS: ABSOLUTE MONOCYTES (AUTO) 0.7 10^3/uL (0.1-1.4); BASOPHILS % (AUTO) 0.3 % (0-2); EOSINOPHILS % (AUTO) 0.4 % (0-6); HEMATOCRIT 39.5 % (36.0-47.0); HEMOGLOBIN 13.4 g/dL (12.0-15.5); LYMPHOCYTES % (AUTO) 16.6 % (13-45); MEAN CORPUSCULAR HEMOGLOBIN 29.3 pg (27.0-33.4); MEAN CORPUSCULAR HGB CONC 33.9 g/dL (32.0-36.0); MEAN CORPUSCULAR VOLUME 87 fl (80-97); MONOCYTES % (AUTO) 6.3 % (3-13); PLATELET COUNT 330 10^3/uL (150-450); RED BLOOD COUNT 4.56 10^6/uL (3.72-5.28); SEGMENTED NEUTROPHILS % (AUTO) 76.4 % (42-78); TOTAL CELLS COUNTED % (AUTO) 100 %; WHITE BLOOD COUNT 11.8 10^3/uL (4.0-10.5)
[2019-02-01 17:34] LABS: ALBUMIN 4.2 g/dL (3.5-5.0); ALKALINE PHOSPHATASE 85 U/L (38-126); ANION GAP 9 (5-19); ASPARTATE AMINO TRANSFERASE 19 U/L (14-36); BILIRUBIN,DIRECT 0.2 mg/dL (0.0-0.4); BILIRUBIN,TOTAL 0.6 mg/dL (0.2-1.3); BLOOD UREA NITROGEN 8 mg/dL (7-20); CALCIUM 9.1 mg/dL (8.4-10.2); CARBON DIOXIDE 28 mmol/L (22-30); CHLORIDE 100 mmol/L (98-107); GLUCOSE 93 mg/dL (75-110); POTASSIUM 3.5 mmol/L (3.6-5.0); TOTAL PROTEIN 8.4 g/dL (6.3-8.2)
--- NOTE | 2019-02-01 18:37 | RADIOLOGY REPORT (SQ) ---
EXAM DESCRIPTION: CT FACIAL AREA WITH COMPLETED DATE/TIME: 02/01/2019 6:06 pm REASON FOR STUDY: dental infection wiwht facila swelling COMPARISON: CT BRAIN 08/07/2018, MRI BRAIN 08/07/2018 TECHNIQUE: Post contrast images through the facial bones and orbits windowed for bone and soft tissu e. Additional coronal and sagittal reconstructed images reviewed. All images stored on PACS. All CT scanners at this facility use dose modulation, iterative reconstruction, and/or weight based d osing when appropriate to reduce radiation dose to as low as reasonably achievable (ALARA). [facility]: Dose Right [facility]: CareDose [facility]: Dose Right [facility]: Teradose 4D [facility]: [employer] CONTRAST TYPE AND DOSE: contrast/concentration: Isovue 350.00 mg/ml; Total Contrast Delivered: 50.0 ml; Total Saline Delivered: 50.0 ml RENAL FUNCTION: CREATININE 0.75 RADIATION DOSE: CT Rad equipment meets quality standard of care and radiation dose reduction techniq ues were employed. CTDIvol: 30.4 mGy. DLP: 549 mGy-cm. . LIMITATIONS: LARGE PATIENT, LIMITED CONTRAST BOLUS FINDINGS: Advanced dental caries are present throughout the right upper and lower molar teeth and le ft upper and lower molar teeth. There is right-sided facial cellulitis without gross evidence of abs cess. FACIAL BONES: No fracture or bone lesion. ORBITS: Intact. No fracture. Symmetric intact globes and retroorbital soft tissues. PARANASAL SINUSES: No air-fluid levels worrisome for acute sinusitis. Reactive right maxillary sinus mucous membrane thickening. No nasal polyps. Maxillary sinus outlets are patent. SOFT TISSUES: Right-sided facial cellulitis without discrete abscess INFERIOR BRAIN: Limited view. No acute findings. OTHER: No other significant finding. IMPRESSION: Right-sided facial cellulitis without discrete abscess. Advanced dental caries throughout the right and left upper and lower molar teeth TECHNICAL DOCUMENTATION: JOB ID: [id number] Quality ID # [id number]: Final reports with documentation of one or more dose reduction techniques (e.g., Au tomated exposure control, adjustment of the mA and/or kV according to patient size, use of iterative reconstruction technique) 2010 [employer]- All Rights Reserved Reading location - IP/workstation name: [email or web address]
[2019-02-01] MEDS ORDERED: CLINDAMYCIN 600 MG/D5W RTU 600 MG/50 ML RTUPB IV ONE (19:47)
[2019-02-01] MEDS ORDERED: FENTANYL CITRATE INJ/PF 100 MCG/2 ML AMPUL IV ONE (20:02)
[2019-02-01] MEDS ORDERED: ONDANSETRON HCL INJ/PF 4 MG/2 ML SDV IV ONE (20:02)
[2019-02-01] MEDS ORDERED: DEXAMETHASONE SOD PHOS INJ 10 MG/1 ML VIAL IV ONE (20:03)
[2019-02-01] MEDS ORDERED: DIPHENHYDRAMINE HCL 50 MG/ML VIAL IV ONE (20:34)
[2019-02-01] MEDS ORDERED: METOCLOPRAMIDE HCL INJ/PF 10 MG/2 ML SDV IV ONE (20:35)
[2019-02-01] MEDS ORDERED: HYDROCODONE/ACETAMINOPHEN 5-325 MG (6 TAB/ER DISP) PO PRN (22:57)
[2019-02-01 23:28] VITALS: BP 135/51
--- NOTE | 2019-02-02 01:11 | ER Document Report ---
Entered by YVONNE LANTIGUA SCRIBE 02/01/192008 Acting as scribe for:KERRI FERNANDO DO ED Oral Problem - General Chief Complaint: Facial Swelling Stated Complaint: TOOTHACHE/SWOLLEN RIGHT SIDE OF FACE Time Seen by Provider: 02/01/19 16:01 Primary Care Provider: SUSHANT MITCHELL MD [Primary Care Provider] - Follow up as needed Mode of Arrival: Ambulatory Information source: Patient Notes: Patient is a 33-year-old female with history of hydradenitis suppurativa on Humira who presents to the emergency department today with complaints of a toothache last night with facial swelling today when she woke up. Patient states she got her Humira shot yesterday. Patient states she does not have a dentist. Patient states she has not had any fractured teeth or any fillings fall out to her knowledge. TRAVEL OUTSIDE OF THE [place] IN LAST 30 DAYS: No - Related Data Allergies/Adverse Reactions: No Known Allergies Allergy (Verified 02/01/19 16:01) Past Medical History - General Information source: Patient - Social History Smoking Status: Current Every Day Smoker Cigarette use (# per day): Yes Chew tobacco use (# tins/day): No Frequency of alcohol use: Occasional Drug Abuse: None Lives with: Family Family History: Arthritis, DM, Hyperlipidemia, Hypertension, Malignancy Patient has suicidal ideation: No Patient has homicidal ideation: No - Past Medical History Cardiac Medical History: Reports: Hx Hypertension Skin Medical History: Reports Other - Hx HS Psychiatric Medical History: Reports: Hx Depression - Immunizations Hx Diphtheria, Pertussis, Tetanus Vaccination: Yes Review of Systems - Review of Systems Constitutional: No symptoms reported EENT: See HPI, Other - dental pain, facial swelling Cardiovascular: No symptoms reported Respiratory: No symptoms reported Gastrointestinal: No symptoms reported Genitourinary: No symptoms reported Female Genitourinary: No symptoms reported Musculoskeletal: No symptoms reported Skin: No symptoms reported Hematologic/Lymphatic: No symptoms reported Neurological/Psychological: No symptoms reported -: Yes All other systems reviewed and negative Physical Exam - Vital signs Vitals: Temp Pulse Resp BP Pulse Ox 99.9 F 99 18 147/88 H 97 02/01/19 15:34 02/01/19 15:34 02/01/19 15:34 02/01/19 15:34 02/01/19 15:34 Interpretation: Normal - General General appearance: Appears well, Alert - HEENT Head: Normocephalic, Atraumatic, Other - Swelling over right side of face, right maxilla. No erythema. No submandibular or suvlingual swelling or edema Eyes: Normal Pupils: PERRL Mucous membranes: Moist Pharynx: Other - Poor dentition. No: Uvular edema, Potential airway comprom. - Respiratory Respiratory status: No respiratory distress Chest status: Nontender Breath sounds: Normal Chest palpation: Normal - Cardiovascular Rhythm: Regular Heart sounds: Normal auscultation Murmur: No - Abdominal Inspection: Normal Distension: No distension Bowel sounds: Normal Tenderness: Nontender Organomegaly: No organomegaly - Back Back: Normal, Nontender - Extremities General upper extremity: Normal inspection, Nontender, Normal color, Normal ROM, Normal temperature General lower extremity: Normal inspection, Nontender, Normal color, Normal ROM, Normal temperature, Normal weight bearing. No: Carmen's sign - Neurological Neuro grossly intact: Yes Cognition: Normal Orientation: AAOx4 Sushma Coma Scale Eye Opening: Spontaneous Prospect Coma Scale Verbal: Oriented Prospect Coma Scale Motor: Obeys Commands Sushma Coma Scale Total: 15 Speech: Normal Motor strength normal: LUE, RUE, LLE, RLE Sensory: Normal - Psychological Associated symptoms: Normal affect, Normal mood - Skin Skin Temperature: Warm Skin Moisture: Dry Skin Color: Normal Course - Re-evaluation Re-evalutation: 02/01/19 23:03 swelling decreased. 02/02/19 Patient is a 33-year-old female who had dental pain yesterday and also takes Humira injections. Used to Mireya yesterday. No discernible abscess on CT face. No airway compromise. Patient was given clindamycin and dexamethasone here as well as medication to control pain and headache related to facial swelling. She is feeling much better. Swelling decreased. Patient will be discharged home with clindamycin and pain medication. She is to return immediately if any worsening or concerning symptoms such as increased swelling, difficulty talking, swallowing, breathing. Patient and are agreeable to this plan. Will return immediately for further concerns. Follow-up with dentist. - Vital Signs Vital signs: Temp Pulse Resp BP Pulse Ox 98.6 F 65 16 135/51 H 95 02/01/19 23:24 02/01/19 23:24 02/01/19 23:24 02/01/19 23:24 02/01/19 23:24 - Laboratory Result Diagrams: 02/01/19 16:51 02/01/19 16:51 Laboratory results interpreted by me: 02/01/19 02/01/19 02/01/19 16:29 16:51 16:51 WBC 11.8 H Absolute Neuts (auto) 9.0 H Potassium 3.5 L Total Protein 8.4 H Urine Blood MODERATE H Urine Urobilinogen 2.0 H Discharge - Discharge Clinical Impression: Swelling of right side of face, Dental infection Condition: Stable Disposition: HOME, SELF-CARE Instructions: Dental Infection or Abscess ([facility]) Additional Instructions: Please return immediately if there is any worsening swelling, difficulty breathing or swallowing. Please follow-up with your dentist as soon as you are able. Prescriptions: Clindamycin HCl [Cleocin 300 mg Capsule] 300 mg PO Q6 #40 capsule Oxycodone HCl/Acetaminophen [Percocet 5-325 mg Tablet] 1 - 2 tab PO Q4H PRN #15 tablet PRN Reason: Forms: Return to Work Referrals: SUSHANT MITCHELL MD [Primary Care Provider] - Follow up as needed Scribe Attestation: 02/02/19 01:11 I personally performed the services described in the documentation, reviewed and edited the documentation which was dictated to the scribe in my presence, and it accurately records my words and actions. I personally performed the services described in the documentation, reviewed and edited the documentation which was dictated to the scribe in my presence, and it accurately records my words and actions.
== END 2019-02-01 23:23 | disposition home or self-care (01) ==
LOC: ER 15:10
DX: K04.7 Periapical abscess without sinus (principal); R22.0 Localized swelling, mass and lump, head; K08.89 Other specified disorders of teeth and supporting structures; F17.210 Nicotine dependence, cigarettes, uncomplicated; I10 Essential (primary) hypertension
CPT/HCPCS: 36415; 87040; 84703; 85025; 80053; 81001; 70487; J1200; J3010; J2765; J2405; J1100; 96365; 96375; 99283

== ENCOUNTER → 2019-02-20 | Outpatient (CLI) | payer BC ==
[2019-02-20 12:34] LABS: ABSOLUTE EOSINOPHILS # (AUTO) 0.1 10^3/uL (0.0-0.6); ABSOLUTE LYMPHOCYTES (AUTO) 2.1 10^3/uL (0.5-4.7); ABSOLUTE MONOCYTES (AUTO) 0.3 10^3/uL (0.1-1.4); ABSOLUTE NEUT (AUTO) 3.6 10^3/uL (1.7-8.2); BASOPHILS % (AUTO) 0.4 % (0-2); EOSINOPHILS % (AUTO) 1.9 % (0-6); HEMATOCRIT 37.8 % (36.0-47.0); HEMOGLOBIN 12.7 g/dL (12.0-15.5); LYMPHOCYTES % (AUTO) 34.5 % (13-45); MEAN CORPUSCULAR HGB CONC 33.6 g/dL (32.0-36.0); MEAN CORPUSCULAR VOLUME 87 fl (80-97); PLATELET COUNT 427 10^3/uL (150-450); RED BLOOD COUNT 4.37 10^6/uL (3.72-5.28); RED CELL DISTRIBUTION WIDTH 13.5 % (11.5-14.0); SEGMENTED NEUTROPHILS % (AUTO) 58.2 % (42-78); TOTAL CELLS COUNTED % (AUTO) 100 %; WHITE BLOOD COUNT 6.1 10^3/uL (4.0-10.5)
[2019-02-20 13:02] LABS: ALBUMIN 4.1 g/dL (3.5-5.0); ALKALINE PHOSPHATASE 82 U/L (38-126); ANION GAP 10 (5-19); ASPARTATE AMINO TRANSFERASE 21 U/L (14-36); BILIRUBIN,DIRECT 0.2 mg/dL (0.0-0.4); BILIRUBIN,TOTAL 0.3 mg/dL (0.2-1.3); BLOOD UREA NITROGEN 14 mg/dL (7-20); CALCIUM 9.1 mg/dL (8.4-10.2); CARBON DIOXIDE 27 mmol/L (22-30); CHLORIDE 106 mmol/L (98-107); GLUCOSE 84 mg/dL (75-110); IRON 60.1 ug/dL (37-170); POTASSIUM 3.9 mmol/L (3.6-5.0); TOTAL PROTEIN 8.3 g/dL (6.3-8.2)
== END ==
LOC: OD 11:06
PROVIDERS: ATTEND Family Medicine
DX: R53.83 Other fatigue (principal)
CPT/HCPCS: 36415; 80053; 82728; 83540; 84443; 85025

== ENCOUNTER → 2020-03-24 | Outpatient (CLI) | payer BC ==
[2020-03-24 09:20] LABS: ABSOLUTE EOSINOPHILS # (AUTO) 0.1 10^3/uL (0.0-0.6); ABSOLUTE MONOCYTES (AUTO) 0.3 10^3/uL (0.1-1.4); ABSOLUTE NEUT (AUTO) 3.8 10^3/uL (1.7-8.2); BASOPHILS % (AUTO) 0.5 % (0-2); EOSINOPHILS % (AUTO) 1.9 % (0-6); HEMOGLOBIN 13.6 g/dL (12.0-15.5); LYMPHOCYTES % (AUTO) 31.5 % (13-45); MEAN CORPUSCULAR HEMOGLOBIN 28.9 pg (27.0-33.4); MEAN CORPUSCULAR HGB CONC 33.9 g/dL (32.0-36.0); MEAN CORPUSCULAR VOLUME 85 fl (80-97); MONOCYTES % (AUTO) 4.4 % (3-13); PLATELET COUNT 320 10^3/uL (150-450); RED BLOOD COUNT 4.69 10^6/uL (3.72-5.28); RED CELL DISTRIBUTION WIDTH 14.9 % (11.5-14.0); SEGMENTED NEUTROPHILS % (AUTO) 61.7 % (42-78); TOTAL CELLS COUNTED % (AUTO) 100 %; WHITE BLOOD COUNT 6.2 10^3/uL (4.0-10.5)
[2020-03-24 09:44] LABS: ALKALINE PHOSPHATASE 82 U/L (38-126); ANION GAP 8 (5-19); ASPARTATE AMINO TRANSFERASE 24 U/L (14-36); BILIRUBIN,DIRECT 0.1 mg/dL (0.0-0.4); BILIRUBIN,TOTAL 0.4 mg/dL (0.2-1.3); BLOOD UREA NITROGEN 15 mg/dL (7-20); CARBON DIOXIDE 28 mmol/L (22-30); CHLORIDE 103 mmol/L (98-107); GLUCOSE 133 mg/dL (75-110); POTASSIUM 3.6 mmol/L (3.6-5.0); TOTAL PROTEIN 7.9 g/dL (6.3-8.2)
== END ==
LOC: OD 08:35
PROVIDERS: ATTEND Family Medicine
DX: L73.2 Hidradenitis suppurativa (principal); Z79.899 Other long term (current) drug therapy
CPT/HCPCS: 36415; 80053; 85025; 86480

== ENCOUNTER → 2020-05-06 | Outpatient (CLI) | payer BC ==
[2020-05-06 10:36] LABS: BLOOD UREA NITROGEN 16 mg/dL (7-20); CALCIUM 8.8 mg/dL (8.4-10.2); CARBON DIOXIDE 30 mmol/L (22-30); CHLORIDE 104 mmol/L (98-107); GLUCOSE 108 mg/dL (75-110); POTASSIUM 3.5 mmol/L (3.6-5.0)
[2020-05-06 10:41] LABS: ANION GAP 5 (5-19)
[2020-05-07 12:37] LABS: CREATININE URINE 139.7 mg/dL (Not Estab.); MICROALBUMIN URINE 10.7 ug/mL (Not Estab.)
== END ==
LOC: OD 08:53
PROVIDERS: ATTEND Family Medicine
DX: R73.01 Impaired fasting glucose (principal)
CPT/HCPCS: 36415; 80048; 82043; 82570; 83036